=== PATIENT | male | born 1960 | race Caucasian/White ===

== ENCOUNTER 2018-04-27 03:01 | Emergency (ER) | payer BC ==
[~2018-04-27] VITALS: Ht 180.3 cm; Wt 72.7 kg
[2018-04-27 03:07] VITALS: Ht 180.3 cm; Wt 72.7 kg
[2018-04-27 03:33] LABS: BASOPHILS 0.3 % (0-2); EOSINOPHILS 2.4 % (0-7); HEMATOCRIT 44.4 % (42.0-54.0); HEMOGLOBIN 15.7 g/dL (13.5-17.5); IMMATURE GRANULOCYTES 0.2 % (0-5); LYMPHOCYTES 31.1 % (15-50); MCH 32.7 pg (26.0-34.0); MCHC 35.4 g/dL (31.0-37.0); MCV 92.5 fL (80.0-100.0); MEAN PLATELET VOLUME 8.8 fL (7.4-10.4); MONOCYTES 7.1 % (2-11); NEUTROPHILS 58.9 % (40-80); PLATELET COUNT 219 10x3/uL (130-400); RDW 12.7 % (11.5-14.5); WBC 6.6 10x3/uL (4.8-10.8)
[2018-04-27 03:48] LABS: ALBUMIN 3.4 g/dL (3.4-5.0); ALKALINE PHOSPHATASE 116 U/L (46-116); ALT (SGPT) 62 U/L (10-68); BILIRUBIN - TOTAL 0.38 mg/dL (0.2-1.3); CALC OSMOLALITY 259 mosm/kg (275-300); CALCIUM 8.2 mg/dL (8.5-10.1); CARBON DIOXIDE 23.2 mmol/L (21.0-32.0); CHLORIDE - SERUM 98 mmol/L (98-107); CREATININE - SERUM 0.8 mg/dL (0.6-1.3); GLUCOSE 100 mg/dL (74-106); PROTEIN - SERUM 7.3 g/dL (6.4-8.2); SODIUM 131 mmol/L (136-145); UREA NITROGEN 4 mg/dL (7-18); eGFR NON AFRICAN AMERICAN > 90 mL/min (90-120)
[2018-04-27 03:58] LABS: AMYLASE - SERUM 92 U/L (25-115); CKMB 3.9 U/L (0.0-3.6); CREATINE KINASE 187 UL (21-232); LIPASE 188 U/L (73-393); PRO BNP 99 pg/mL (0-125); TROPONIN-I < 0.017 ng/mL (0.000-0.060)
[2018-04-27] MEDS ORDERED: PROAIR HFA8.5 GM INH (04:53)
[2018-04-27] MEDS ORDERED: LEVAQUIN500 MG PO (04:53)
[2018-04-27 07:23] VITALS: BP 126/84
== END 2018-04-27 07:24 | disposition home or self-care (01) ==
LOC: D.ER 03:01
PROVIDERS: Family Medicine
DX: J40 Bronchitis, not specified as acute or chronic (principal); F10.10 Alcohol abuse, uncomplicated; J44.1 Chronic obstructive pulmonary disease with (acute) exacerbation; F17.200 Nicotine dependence, unspecified, uncomplicated

== ENCOUNTER 2018-09-18 11:10 | Outpatient (CLI) | payer BC ==
[~2018-09-18] VITALS: Ht 180.3 cm; Wt 70.9 kg
--- NOTE | ~2018-09-18 | HEMODYNAMI ---
PATIENT:CAIN MENDOZA JR MEDICAL RECORD: [id number] : 64 LOCATION:D.CAT ADMISSION DATE: 09/18/18 Generatedon:09/18/201813:15 Patient name: CAIN MENDOZA Patient #: [id number] SSN: : 1960 Date of study: 09/18/2018 Page: Of Hemodynamic Procedure Report Patient Data Patient Demographics Procedure consent was obtained First Name: CAIN Gender: Male Last Name: REJI Suffix: Patient #: [id number] : 1960 Age: 58 year(s) Accession #: Race: Unknown [id number] Additional ID: [id number] Contact details Address: [address] [place] [address] State: [place] City: [facility] Zip code: [address] Past Medical History Allergies: No known allergies Admission Admission Data Admission Date: 09/18/2018 Admission Time: 11:10 Height (in.): 71 BSA: 1.91 (m2) Height (cm.): 180.34 BMI: 22.18 (kg/m2) Weight (lbs.): 159 Weight (kg.): 72.12 Lab Results Lab Result Date: 09/18/2018 Lab Result Time: 0:00 Biochemistry Name Units Result Min Max BUN mg/dl 5 -*(----)-- 7 18 Creatinine mg/dl 0.8 --(-*--)-- 0.6 1.3 CBC Name Units Result Min Max Hemoglobin g/dl 16.3 --(--*-)-- 13.5 17.5 Procedure Procedure Types Cath Procedure Diagnostic Procedure LHC LHC w/Coronaries Sedation Charges Moderate Sedation up to 15 minutes PCI Procedure Coronary Stent Coronary Stent Initial Procedure Description Procedure Date Procedure Date: 09/18/2018 Procedure Start Time: 12:47 Procedure End Time: 13:14 Procedure Staff Name Function Otto Sotelo MD Performing Physician Bud Trevino RT Monitor Iesha Rice RT Scrub Lynn Georges RN Nurse Procedure Data Cath Procedure Fluoroscopy Diagnostic fluoroscopy Total fluoroscopy Time: 5.8 time: 5.8 min min Diagnostic fluoroscopy Total fluoroscopy dose: 598 dose: 598 mGy mGy Contrast Material Contrast Material Type Amount (ml) Isovue 300 94 Entry Location Entry Primary Successful Side Size Upsize Upsize Entry Closure Godoy ccessful Closure Location (Fr) 1 (Fr) 2 (Fr) Remarks Device Remarks Radial Right 6 Fr Mechanical artery Short Compression Estimated blood loss: 10 ml Diagnostic catheters Device Type Used For End Catheter Placement DIAGNOSTIC Omid 110cm Procedure 5Fr catheter ([id number]) Procedure Complications No complications Procedure Medications Medication Administration Route Dosage 0.9% NaCl I.V. 100 ml/hr Oxygen etCO2 Nasal cannula 2 l/min Lidocaine 2% added to field 20 Heparin Flush Bag added to field 2 bags (1000units/500ml NS) Radial Cocktail added to field 1 syringe (Verapomil 2mg/Nitro 400mcg/Heparin 1500units) Versed I.V. 2 mg Fentanyl I.V. 50 mcg Versed I.V. 2 mg Fentanyl I.V. 50 mcg Heparin Bolus I.V. 7100 units Versed I.V. 1 mg Plavix P.O. 600 mg Hemodynamics Rest BSA: 1.91 (m2) HGB: 16.3 (g/dl) O2 Consumption: Estimated: 238.6 (ml/min) O2 Con sumption indexed: Estimated:124.92 (ml/min/m) Heart Rate: 88 (bpm) Pressure Samples Time Site Value (mmHg) Purpose Heart Use Rate(bpm) 12:50 LV 122/-20,-1 Snapshot 102 12:51 AO 100/60(73) Pullback 90 12:51 LV 119/-11,-1 Pullback 90 Gradients Valve Time Site 1 Site 2 Mean SEP/DFP Peak To Heart Use (mmHg) (sec/min) Peak Rate (mmHg) (bpm) Aortic 12:51 LV AO 26 9 19 90 119/-11,-1 100/60(73) Calculations Valve P-P Mean Valve Index Valve Source Name Gradient Area Flow (cm2) Aortic 19 26 19 26 Snapshots Pre Cath Intra NCS Post Cath Vital Signs Time Heart Resp SPO2 NIBP (mmHg) Rhythm Pain Sedation Rate (ipm) (%) Status Level (bpm) 12:36:07 78 18 96 165/91(132) NSR 0 (11) 10(A) , No pain 12:40:24 88 22 96 140/92(111) NSR 0 (11) 10(A) , No pain 12:44:40 87 11 97 129/81(101) NSR 0 (11) 10(A) , No pain 12:48:54 86 12 96 140/82(109) NSR 0 (11) 10(A) , No pain 12:52:57 97 11 96 120/77(99) NSR 0 (11) 9(A) , No pain 12:57:09 97 14 96 133/78(104) NSR 0 (11) 10(A) , No pain 13:01:17 97 14 96 130/74(92) NSR 0 (11) 9(A) , No pain 13:05:27 100 12 97 121/69(92) NSR 0 (11) 9(A) , No pain 13:09:41 104 14 96 125/72(96) NSR 0 (11) 10(A) , No pain 13:13:51 98 16 94 118/76(98) NSR 0 (11) 10(A) , No pain Medications Time Medication Route Dose Verified Delivered Reason Not es Effectiveness by by 12:22:10 0.9% NaCl I.V. 100 Otto Lynn used for ml/hr Deepak Georges rope walker 12:22:17 Oxygen etCO2 2 l/min Otto Lynn used for Nasal Deepak Georges procedure cannula RN 12:22:22 Lidocaine 2% added 20ml Otto Otto for local to vial Deepak Sotelo MD anesthetic field 12:22:27 Heparin Flush added 2 bags Otto Otto used for Bag to Deepak Sotelo MD procedure (1000units/500ml field NS) 12:35:39 Radial Cocktail added 1 Otto Lynn used for (Verapomil to syringe Deepak Georges procedure 2mg/Nitro field RN 400mcg/Heparin 1500units) 12:42:52 Versed I.V. 2 mg Otto Lynn for sedation Deepak Georges RN 12:43:00 Fentanyl I.V. 50 mcg Otto Lynn for sedation Deepak Georges RN 12:50:22 Versed I.V. 2 mg Otto Lynn for sedation Deepak Georges RN 12:50:26 Fentanyl I.V. 50 mcg Otto Lynn for sedation Deepak Georges RN 13:00:38 Heparin Bolus I.V. 7100 Otto Lynn for miladis ified units Deepak Georges anticoagulation with Dr. ADELSO Sotelo 13:00:57 Versed I.V. 1 mg Otto Lynn for sedation Deepak Georges RN 13:02:25 Plavix P.O. 600 mg Otto Lynn for Deepak Georges antiplatelet RN therapy Procedure Log Time Note 12:19:02 Signed procedure consent form obtained from patient. 12:19:03 Diagnostic Cath status Elective 12:19:04 Time tracking: Regular hours (M-F 7:00 - 5:00) 12:19:07 Plan of Care:Hemodynamics will remain stable., Cardiac rhythm will remain stable., Comfort level will be maintained., Respiratory function will remain adequate., Patient/ family verbilizes understanding of procedure., Procedure tolerated without complication., Recovers from procedure without complications.. 12:19:10 Bud Trevino RT(R) sent for patient. Start room use. 12:19:18 H&P Date Dictated: 09/13/2018 Within 30 days and on chart., H&P Addendum completed by physician on day of procedure. (MUST COMPLETE FOR ALL OUTPATIENTS). 12:19:25 Patient Height : 71 inches 12:19:28 Patient Weight : 159 lbs 12:19:36 Patient allergic to No known allergies 12:22:10 0.9% NaCl 100 ml/hr I.V. was administered by Lynn Georges RN; used for procedure; 12:22:17 Oxygen 2 l/min etCO2 Nasal cannula was administered by Lynn Georges RN; used for procedure; 12:22:22 Lidocaine 2% 20ml vial added to field was administered by Otto Sotelo MD; for local anesthetic; 12:22:27 Heparin Flush Bag (1000units/500ml NS) 2 bags added to field was administered by Otto Sotelo MD; used for procedure; 12:22:35 Lab Result : Creatinine 0.8 mg/dl 12:22:35 Lab Result : BUN 5 mg/dl 12:22:35 Lab Result : Hemoglobin 16.3 g/dl 12:29:00 Patient received from Pre/Post Procedure Room to CCL 1 Alert and oriented. Tansferred to table in Supine position. 12:29:01 Warm blankets applied, and hudson hugger turned on for patient comfort. 12:29:02 Correct patient and procedure confirmed by team. 12:29:02 ECG and BP/O2 sat monitors applied to patient. 12:30:03 H&P Date Dictated: 09/13/2018 Within 30 days and on chart., H&P Addendum completed by physician on day of procedure. (MUST COMPLETE FOR ALL OUTPATIENTS). 12:30:12 Pre-procedure instructions explained to patient. 12:30:14 Family in waiting room. 12:30:17 Patient NPO since Midnight. 12:30:22 Is the patient allergic to Iodine/contrast media? No. 12:30:24 Was the patient premedicated? Yes 12:30:47 Is patient on blood thinner?No 12:30:54 Previous problem with sedation/anesthesia? No ? 12:30:57 Patient diabetic? No. 12:30:59 Snore? Yes 12:31:01 Sleep apnea? No 12:31:07 Airway obstruction? Yes COPD 12:31:12 Dentures? No ? 12:31:16 Patient pain scale 0/10 ?. 12:31:26 IV patent on arrival in left forearm with 0.9% NaCl at [facility]. 12:31:37 Lab results completed and on chart. 12:31:57 Right Radial & Right Groin area was prepped with chlora-prep and draped in sterile fashion 12:32:00 Alarms reviewed by R. N. 12:32:04 Sharps counted by scrub and verified by R.N. 12:32:06 Physician arrived 12:34:55 Vital chart was started 12:35:39 Radial Cocktail (Verapomil 2mg/Nitro 400mcg/Heparin 1500units) 1 syringe added to field was administered by Lynn Georges RN; used for procedure; 12:42:27 Baseline sample Acquired. 12:42:32 Rhythm: sinus rhythm 12:42:34 Full Disclosure recording started 12:42:38 --------ALL STOP TIME OUT------ 12:42:38 Final Timeout: patient, procedure, and site verified with staff and physician. All members of the team are in agreement. 12:42:40 Right Radial & Right Groin site verified by team. 12:42:43 Physical assessment completed. ASA score P 2 - A patient with mild systemic disease as per Otto Sotelo MD. 12:42:45 etCO2 monitor malfunction, IRAM etCO2 at this time 12:42:46 Sedation plan: IV Moderate Sedation Medication:Versed, Fentanyl 12:42:50 Use device set Radial Dx or PCI 12:42:51 ACIST Syringe (89429) opened to sterile field. 12:42:52 Versed 2 mg I.V. was administered by Lynn Georges RN; for sedation; 12:42:52 Medline Cath Pack ([id number]) opened to sterile field. 12:42:52 Bag Decanter (2002S) opened to sterile field. 12:43:00 Fentanyl 50 mcg I.V. was administered by Lynn Georges RN; for sedation; 12:43:02 ACIST Hand Control (10230) opened to sterile field. 12:43:02 ACIST Manifold (94662) opened to sterile field. 12:43:03 Tegaderm 4 x 4 (1626W) opened to sterile field. 12:43:04 MBrace Wrist Support ([id number]) opened to sterile field. 12:43:05 DIAGNOSTIC WIRE .035 260cm J wire (400959) opened to sterile field. 12:43:08 NEEDLE Cook 21G 4cm Radial (Q36220) opened to sterile field. 12:43:16 SHEATH 6FR Slender ([id number]) opened to sterile field. 12:47:11 Procedure started. 12:47:16 Local anesthetic to right radial artery with Lidocaine 2% by Otto Sotelo MD.INITIAL ACCESS ONLY 12:48:04 A 6 Fr Short sheath was inserted into the Right Radial artery 12:48:06 Zero performed for pressure channel P1 12:49:04 A DIAGNOSTIC Omid 110cm 5Fr catheter (752589) was advanced over the wire and used for Procedure. 12:50:22 Versed 2 mg I.V. was administered by Lynn Georges RN; for sedation; 12:50:26 Fentanyl 50 mcg I.V. was administered by Lynn Georges RN; for sedation; 12:50:42 LV gram done using BAUM 12:50:44 Injector settings: Ml/sec: 7, Volume: 15, 12:50:46 LV hemodynamics recorded. 12:50:56 EF : 55 % 12:51:22 LCA angiography performed. 12:52:42 RCA angiography performed. 12:53:40 TR BAND Standard ([id number]) opened to sterile field. 12:53:45 Catheter removed. 12:56:35 GUIDE 6FR AR 1.0 catheter (VP3FH38) opened to sterile field. 12:56:36 BMW 300cm [place] 2 J wire ([id number]) opened to sterile field. 12:56:36 TUBING High Pressure Extension Tubing (Deepak) (AE4986K) opened to sterile field. 12:56:40 INFLATOR Merit BasixCompak (VV1842) opened to sterile field. 12:57:05 6 Fr AR 1 guide catheter was inserted over the wire 12:58:18 BMW wire advanced. 13:00:38 Heparin Bolus 7100 units I.V. was administered by Lynn Georges RN; for anticoagulation; verified with Dr. Sotelo 13:00:57 Versed 1 mg I.V. was administered by Lynn Georges RN; for sedation; 13:01:14 Wire advanced across lesion. 13:02:25 Plavix 600 mg P.O. was administered by Lynn Georges RN; for antiplatelet therapy; 13:06:57 Place stent Inflation Number: 1 A INTEGRITY RX 3.5 x 18 stent ([id number]) was prepped and advanced across the Mid RCA. The stent was deployed at 12 MIROSLAVA for 0:10 (min:sec). 13:09:00 Stent catheter was removed intact over wire. 13:09:00 Wire removed. 13:09:01 Guide catheter removed. 13:09:14 Sheath removed intact; hemostasis achieved with Mechanical Compression to the Right Radial artery. 13:09:15 Procedure ended.(Physican Out) 13:12:02 Fluoroscopy time 05.80 minutes. 13:12:09 Fluoroscopy dose: 598 mGy 13:12:09 Flurop Dose total: 598 13:12:12 Contrast amount:Isovue 300 94ml. 13:12:14 Sharps counted by scrub and verified by R.N. 13:12:16 TR band inflated with 13cc of air. 13:12:17 Insertion/operative site no bleeding no hematoma. 13:12:24 Post right radial artery:stable, soft, clean and dry 13:12:28 Post-procedure physical assessment completed. ASA score P 2 - A patient with mild systemic disease as per Otto Sotelo MD. 13:12:30 Post procedure rhythm: unchanged. 13:12:33 Estimated blood loss: 10 ml 13:12:35 Post procedure instruction explained to patient.Patient verbalizes understanding. 13:12:35 Patient needs reinforcement of post procedure teaching. 13:12:50 Procedure type changed to Cath procedure, Diagnostic procedure, LHC, LHC w/Coronaries, Sedation Charges, Moderate Sedation up to 15 minutes, PCI procedure, Coronary Stent, Coronary Stent Initial 13:14:20 Procedure and supply charges have been captured, reviewed, submitted and are correct. 13:14:22 Procedure Complication : No complications 13:14:24 Vital chart was stopped 13:14:25 See physician's report for complete and final results. 13:14:26 Report given to Pre/Post Procedure Room. 13:14:29 Patient transfered to Pre/Post Procedure Room with Stretcher. 13:14:31 Procedure ended. 13:14:31 Full Disclosure recording stopped 13:14:35 End room use (Document Last) Intervention Summary Intervention Notes Time ActionType Lesion and Equipment Action# Pressure Duration Attributes Used 13:06:57 Place stent Mid RCA INTEGRITY RX 1 12 00:10 3.5 x 18 stent ([id number]) Device Usage Item Name Manufacture Quantity Catalog Hospital Part Current Minima l Lot# / Number Charge Number Stock Stock Serial# Code ACIST Acist 1 04204 777224 880922 745919 20 Syringe Medical (62507) Systems Inc Medline Cath Medline 1 [id number] 535068 48133 647086 5 Pack ([id number]) Bag Decanter Microtek 1 2001S 138632 59332 162772 5 () Medical Inc. ACIST Hand Acist 1 29125 977851 957546 382006 5 Control Medical (88471) Systems Inc ACIST Acist 1 09884 912669 318708 007391 5 Manifold Medical (95956) Systems Inc Tegaderm 4 x 3M 1 1626W 379442 155806 063480 5 4 (1626W) MBrace Wrist Advanced 1 140-0250-00 134361 15184 439604 5 Support Vascular ([id number]) Dynamics DIAGNOSTIC St Tk 1 695884 960857 739386 118927 30 WIRE .035 260cm J wire (377184) NEEDLE Cook [place] [employer] 1 T18183 624232 589593 231313 5 21G 4cm Radial (Y86849) SHEATH 6FR Terumo 1 [id number] 865124 514856 503953 40 Slender ([id number]) DIAGNOSTIC Terumo 1 40-5023 485859 668429 665311 5 Omid 110cm 5Fr catheter (282194) TR BAND Terumo 1 [id number] 285127 104220 129120 40 Standard ([id number]) GUIDE 6FR AR Medtronic 1 [id number] 465499 99448 904251 1 1.0 catheter ([id number]) BMW 300cm Pepper 1 [id number] 285666 494372 692482 5 [place] 2 Vascular J wire ([id number]) TUBING High Merit 1 [id number] 536344 64267 575822 10 Pressure Medical Extension Tubing (Sotelo) ([id number]) INFLATOR Merit 1 WO5319 864653 288302 759924 15 Merit Medical BasixCompak (MW8518) INTEGRITY RX Medtronic 1 [id number] 545543 756060 929144 5 [id number] 3.5 x 18 stent ([id number]) Signature Audit [place] Stage Time Signature Unsigned Intra-Procedure 09/18/2018 Bud Trevino 1:15:18 PM RT(R) Signatures Monitor : Bud Trevino RT Signature : Date : Time : [facility] [address] [place], [place] [address]
[~2018-09-18 11:10] MED LIST: LEVAQUIN500 MG PO; PROAIR HFA8.5 GM INH
[2018-09-18 11:35] VITALS: BP 150/89; Ht 180.3 cm; Wt 70.9 kg
[2018-09-18 12:02] LABS: CALC OSMOLALITY 259 mosm/kg (275-300); CALCIUM 8.2 mg/dL (8.5-10.1); CARBON DIOXIDE 21.6 mmol/L (21.0-32.0); CHLORIDE - SERUM 98 mmol/L (98-107); CREATININE - SERUM 0.8 mg/dL (0.6-1.3); GLUCOSE 102 mg/dL (74-106); POTASSIUM - SERUM 4.4 mmol/L (3.5-5.1); SODIUM 131 mmol/L (136-145); UREA NITROGEN 5 mg/dL (7-18); eGFR NON AFRICAN AMERICAN > 90 mL/min (90-120)
[2018-09-18 12:08] LABS: BASOPHILS 0.4 % (0-2); EOSINOPHILS 1.6 % (0-7); HEMATOCRIT 45.6 % (42.0-54.0); HEMOGLOBIN 16.3 g/dL (13.5-17.5); IMMATURE GRANULOCYTES 0.1 % (0-5); LYMPHOCYTES 27.4 % (15-50); MCH 33.5 pg (26.0-34.0); MCHC 35.7 g/dL (31.0-37.0); MCV 93.6 fL (80.0-100.0); MEAN PLATELET VOLUME 8.8 fL (7.4-10.4); MONOCYTES 9.9 % (2-11); NEUTROPHILS 60.6 % (40-80); PLATELET COUNT 243 10x3/uL (130-400); RBC 4.87 10x6/uL (4.20-6.10); RDW 12.8 % (11.5-14.5); WBC 6.9 10x3/uL (4.8-10.8)
[2018-09-18] MEDS ORDERED: BAYER CHEWABLE81 MG PO (13:22)
[2018-09-18] MEDS ORDERED: PLAVIX75 MG PO (13:22)
== END 2018-09-18 17:45 | disposition home or self-care (01) ==
LOC: D.CATH 11:10
PROVIDERS: Internal Medicine Cardiovascular Disease
DX: I25.119 Atherosclerotic heart disease of native coronary artery with unspecified angina pectoris (principal)